=== PATIENT | male | born 1970 | race Two or more races ===

== ENCOUNTER 2021-07-17 17:33 | Emergency (ER) | payer OTHER ==
[~2021-07-17] VITALS: Ht 157.5 cm; Wt 72.6 kg
[2021-07-18] MEDS ORDERED: HYZAAR 100-251 EACH PO (08:41)
[2021-07-18] MEDS ORDERED: NIFE60TA3 PO (08:41)
== END 2021-07-18 10:27 | disposition home or self-care (01) ==
LOC: ER 17:33
DX: I11.0 Hypertensive heart disease with heart failure (principal); Z03.818 Encounter for observation for suspected exposure to other biological agents ruled out; Z91.81 History of falling